=== PATIENT | male | born 1960 | race Caucasian/White ===

== ENCOUNTER 2018-10-13 08:06 | Emergency (ER) | payer OTHER ==
[~2018-10-13] VITALS: Ht 185.4 cm; Wt 90.9 kg
[~2018-10-13 08:06] MED LIST: GLIP5 PO; METF-960 PO
[2018-10-13 08:19] LABS: GLUCOSE,POINT OF CARE 172 MG/DL (70-110)
[2018-10-13] MEDS: PENICILLIN V POTASSIUM 500 MG TABLET PO ONE (09:49)
[2018-10-13] MEDS: KETOROLAC TROMETHAMINE 60 MG/2 ML VIAL IM ONE (09:49)
[2018-10-13 10:20] VITALS: BP 156/91
[2018-10-13 10:39] LABS: GLUCOSE,POINT OF CARE 137 MG/DL (70-110)
== END 2018-10-13 11:00 | disposition home or self-care (01) ==
LOC: EMS 08:06
DX: K08.89 Other specified disorders of teeth and supporting structures (principal); I10 Essential (primary) hypertension; E11.9 Type 2 diabetes mellitus without complications; F17.290 Nicotine dependence, other tobacco product, uncomplicated; Z79.84 Long term (current) use of oral hypoglycemic drugs
CPT/HCPCS: 82962; 96372; 99283; 99406; J1885

== ENCOUNTER 2023-08-24 19:33 | Inpatient (IN) | payer MEDICAID, OTHER ==
[~2023-08-24] VITALS: Ht 177.8 cm; Wt 92.9 kg
[~2023-08-24 19:33] MED LIST changes: -GLIP5 PO; +GLIP5TAB16 PO; +METF-1211 PO; -METF-960 PO
[2023-08-24 22:40] LABS: BASOPHILS % (AUTO) 0.4 % (0.0-2.0); EOSINOPHILS % (AUTO) 0.6 % (1.0-6.0); HEMATOCRIT 39.6 % (41-53); HEMOGLOBIN 12.9 g/dL (13.5-17.5); LYMPHOCYTES # (AUTO) 0.9 K/uL (1.0-4.8); LYMPHOCYTES % (AUTO) 12.7 % (22.0-44.0); MEAN CORPUSCULAR HEMOGLOBIN 32.3 pg (26.0-34.0); MEAN CORPUSCULAR HGB CONC 32.7 G/dL (31.0-37.0); MEAN CORPUSCULAR VOLUME 99 fL (80-100); MONOCYTES # (AUTO) 0.4 K/uL (0.1-1.0); MONOCYTES % (AUTO) 5.6 % (2.0-9.0); NEUTROPHILS # (AUTO) 5.8 K/uL (1.8-7.7); NEUTROPHILS % (AUTO) 80.7 % (40.0-70.0); PLATELET COUNT (AUTO) 175 K/uL (150-450); RED BLOOD CELL COUNT(AUTO) 4.01 MIL/uL (4.50-5.90); RED CELL DISTRIBUTION WIDTH 15.8 % (11.5-14.5); WHITE BLOOD COUNT (AUTO) 7.2 K/uL (4.5-11.0)
[2023-08-24 22:58] LABS: LACTIC ACID 1.4 mmol/L (0.4-2.0)
[2023-08-24 22:59] LABS: TROPONIN I-HIGH SENSITIVITY 571 ng/L (<76)
[2023-08-24 23:01] LABS: ALBUMIN 1.7 g/dL (3.4-5.0); BILIRUBIN,TOTAL 0.4 mg/dL (0.1-1.0); CALCIUM, TOTAL 8.1 mg/dL (8.8-10.5); CREATININE 2.17 mg/dL (0.60-1.30); TOTAL PROTEIN, SERUM 6.5 g/dL (6.4-8.2)
[2023-08-24] MEDS ORDERED: ASPIRIN 325 MG TABLET PO ONE (23:30)
[2023-08-24] MEDS ORDERED: FUROSEMIDE 40 MG/4 ML VIAL IVP ONE (23:30)
[2023-08-25] MEDS ORDERED: ACETAMINOPHEN 325 MG TABLET PO PRN (00:30)
[2023-08-25] MEDS ORDERED: DEXTROSE 50%-WATER 25 GM/50 ML SYRINGE IVP PRN (00:30)
[2023-08-25] MEDS ORDERED: ONDANSETRON HCL 4 MG/2 ML VIAL IVP PRN (00:30)
[2023-08-25] MEDS: INSULIN GLARGINE,HUM.REC.ANLOG 100 UNITS/ML SQ SCH ×2 (00:34→21:33)
[2023-08-25 01:06] LABS: GLUCOMETER DEV NAME(LOC) ERT.5; GLUCOSE,POINT OF CARE 362 MG/DL (70-110)
[2023-08-25 01:16] LABS: COVID AG,FIA SOURCE NASAL SWAB
[2023-08-25 02:08] LABS: SARS-COV2 (COVID) ANTIGEN,FIA Negative (Negative)
[2023-08-25 05:12] LABS: TROPONIN I-HIGH SENSITIVITY 713 ng/L (<76)
[2023-08-25] MEDS: ASPIRIN 81 MG CHEWABLE TABLET PO SCH (08:17)
[2023-08-25] MEDS: FUROSEMIDE 40 MG/4 ML VIAL IVP SCH ×2 (08:17→21:32)
[2023-08-25] MEDS: HEPARIN SODIUM,PORCINE 5,000 UNITS/ML VIAL SQ SCH ×2 (08:17→15:54)
[2023-08-25 08:50] LABS: TROPONIN I-HIGH SENSITIVITY 685 ng/L (<76)
[2023-08-25 11:26] LABS: GLUCOMETER DEV NAME(LOC) ERT.5; GLUCOSE,POINT OF CARE 306 MG/DL (70-110)
[2023-08-25] MEDS: INSULIN LISPRO 100 UNITS/ML SQ PRN ×2 (11:26→21:33)
[2023-08-25 12:00] VITALS: BP 149/90; PULSE 78; RESP 18; TEMP 98
[2023-08-25] MEDS ORDERED: INFLUENZA VIRUS VACCINE QVS 2023-24 (6MO+)/PF 60 MCG/0.5 ML SYRINGE IM. ONE (15:00)
[2023-08-25] MEDS ORDERED: PNEUMOCOCCAL VACCINE POLYVALENT 0.5 ML SYRINGE [PPSV23] IM. ONE (15:00)
[2023-08-25 16:01] VITALS: BP 142/94; PULSE 81; RESP 18; TEMP 98
[2023-08-25] MEDS ORDERED: DIGOXIN 250 MCG/ML 2 ML AMP IVP ONE (17:30)
[2023-08-25] MEDS ORDERED: AMIODARONE HCL 150 MG in DEXTROSE 5%-WATER 97 ML IV ONE (17:45)
[2023-08-25] MEDS ORDERED: HydrOXYzine HCL 50 MG TABLET PO PRN (17:45)
[2023-08-25] MEDS ORDERED: AMIODARONE HCL 360 MG in DEXTROSE 5%-WATER 242.8 ML IV ONE (17:45)
[2023-08-25 19:30] VITALS: BP 121/83; PULSE 103; RESP 18; TEMP 98.4
[2023-08-25 22:16] LABS: GLUCOMETER DEV NAME(LOC) 5N.1C; GLUCOSE,POINT OF CARE 78 MG/DL (70-110)
[2023-08-25] MEDS ORDERED: AMIODARONE HCL 540 MG in DEXTROSE 5%-WATER 239.2 ML IV ONE (23:45)
[2023-08-26 00:18] VITALS: BP 141/82; PULSE 120; RESP 20; TEMP 98.2
[2023-08-26] MEDS: HEPARIN SODIUM,PORCINE 5,000 UNITS/ML VIAL SQ SCH ×4 (00:24→23:45)
[2023-08-26 05:15] VITALS: BP 141/85; PULSE 79; RESP 19; TEMP 98.5
[2023-08-26 06:53] LABS: BASOPHILS % (AUTO) 0.3 % (0.0-2.0); EOSINOPHILS % (AUTO) 0.7 % (1.0-6.0); HEMATOCRIT 41.8 % (41-53); HEMOGLOBIN 13.7 g/dL (13.5-17.5); LYMPHOCYTES # (AUTO) 1.5 K/uL (1.0-4.8); LYMPHOCYTES % (AUTO) 17.6 % (22.0-44.0); MEAN CORPUSCULAR HEMOGLOBIN 32.2 pg (26.0-34.0); MEAN CORPUSCULAR HGB CONC 32.7 G/dL (31.0-37.0); MEAN CORPUSCULAR VOLUME 99 fL (80-100); MONOCYTES # (AUTO) 0.6 K/uL (0.1-1.0); NEUTROPHILS # (AUTO) 6.3 K/uL (1.8-7.7); NEUTROPHILS % (AUTO) 74.4 % (40.0-70.0); PLATELET COUNT (AUTO) 193 K/uL (150-450); RED BLOOD CELL COUNT(AUTO) 4.24 MIL/uL (4.50-5.90); RED CELL DISTRIBUTION WIDTH 15.9 % (11.5-14.5); WHITE BLOOD COUNT (AUTO) 8.4 K/uL (4.5-11.0)
[2023-08-26 07:09] LABS: CALCIUM, TOTAL 8.5 mg/dL (8.8-10.5); CREATININE 2.01 mg/dL (0.60-1.30); POTASSIUM 3.5 mmol/L (3.5-5.1)
[2023-08-26] MEDS: ASPIRIN 81 MG CHEWABLE TABLET PO SCH (08:20)
[2023-08-26] MEDS: FUROSEMIDE 40 MG/4 ML VIAL IVP SCH ×2 (08:20→20:32)
[2023-08-26] MEDS: INSULIN LISPRO 100 UNITS/ML SQ PRN (11:27)
[2023-08-26 11:46] LABS: GLUCOMETER DEV NAME(LOC) 5N.2C; GLUCOSE,POINT OF CARE 163 MG/DL (70-110)
[2023-08-26 19:56] VITALS: BP 126/82; PULSE 76; RESP 19; TEMP 99
[2023-08-26] MEDS: APIXABAN 5 MG TABLET PO SCH (20:32)
[2023-08-26] MEDS: CARVEDILOL 6.25 MG TABLET PO SCH (20:32)
[2023-08-26] MEDS: AMIODARONE HCL 200 MG TABLET PO SCH (20:32)
[2023-08-26 20:36] LABS: GLUCOMETER DEV NAME(LOC) 5N.1C; GLUCOSE,POINT OF CARE 93 MG/DL (70-110)
[2023-08-26 20:36] LABS: GLUCOMETER DEV NAME(LOC) 5N.1C; GLUCOSE,POINT OF CARE 373 MG/DL (70-110)
[2023-08-26 20:36] LABS: GLUCOMETER DEV NAME(LOC) 5N.1C; GLUCOSE,POINT OF CARE 91 MG/DL (70-110)
[2023-08-26] MEDS: INSULIN GLARGINE,HUM.REC.ANLOG 100 UNITS/ML SQ SCH (20:36)
[2023-08-26] MEDS ORDERED: AMIODARONE HCL 750 MG in DEXTROSE 5%-WATER 485 ML IV SCH (21:30)
[2023-08-27 00:11] VITALS: BP 131/71; PULSE 63; RESP 18; TEMP 98.1
[2023-08-27 00:46] LABS: GLUCOMETER DEV NAME(LOC) 5N.1C; GLUCOSE,POINT OF CARE 128 MG/DL (70-110)
[2023-08-27 03:59] VITALS: BP 127/80; PULSE 61; RESP 18; TEMP 98.6
[2023-08-27 08:19] VITALS: BP 124/82; PULSE 63; RESP 17; TEMP 98.3
[2023-08-27] MEDS: ASPIRIN 81 MG CHEWABLE TABLET PO SCH (08:59)
[2023-08-27] MEDS: CARVEDILOL 6.25 MG TABLET PO SCH ×2 (08:59→20:39)
[2023-08-27] MEDS: APIXABAN 5 MG TABLET PO SCH ×2 (08:59→20:39)
[2023-08-27] MEDS: AMIODARONE HCL 200 MG TABLET PO SCH ×2 (08:59→20:40)
[2023-08-27] MEDS: FUROSEMIDE 40 MG/4 ML VIAL IVP SCH ×2 (10:28→20:39)
[2023-08-27 11:31] VITALS: BP 132/59; PULSE 56; RESP 20; TEMP 98
[2023-08-27] MEDS: INSULIN LISPRO 100 UNITS/ML SQ PRN ×3 (12:17→22:42)
[2023-08-27 12:32] LABS: GLUCOMETER DEV NAME(LOC) 5S.2C; GLUCOSE,POINT OF CARE 119 MG/DL (70-110)
[2023-08-27 15:26] VITALS: BP 119/66; PULSE 50; RESP 17; TEMP 97.9
[2023-08-27 18:01] LABS: GLUCOMETER DEV NAME(LOC) 5N.2C; GLUCOSE,POINT OF CARE 326 MG/DL (70-110)
[2023-08-27 19:39] VITALS: BP 123/69; PULSE 52; RESP 18; TEMP 98.6
[2023-08-27] MEDS: ATORVASTATIN CALCIUM 20 MG TABLET PO SCH (20:39)
[2023-08-27] MEDS: INSULIN GLARGINE,HUM.REC.ANLOG 100 UNITS/ML SQ SCH (20:50)
[2023-08-27 21:36] LABS: GLUCOMETER DEV NAME(LOC) 5N.1C; GLUCOSE,POINT OF CARE 201 MG/DL (70-110)
[2023-08-28] VITALS (7 sets, daily range): BP systolic 96–150; BP diastolic 51–90; PULSE 41–54; RESP 16–20; TEMP 97.5–98.6
[2023-08-28 00:06] LABS: GLUCOMETER DEV NAME(LOC) 5N.2C; GLUCOSE,POINT OF CARE 201 MG/DL (70-110)
[2023-08-28 07:16] LABS: GLUCOMETER DEV NAME(LOC) 5N.2C; GLUCOSE,POINT OF CARE 79 MG/DL (70-110)
[2023-08-28] MEDS: ASPIRIN 81 MG CHEWABLE TABLET PO SCH (09:02)
[2023-08-28] MEDS: AMIODARONE HCL 200 MG TABLET PO SCH (09:04)
[2023-08-28] MEDS: FUROSEMIDE 40 MG/4 ML VIAL IVP SCH ×2 (09:04→20:40)
[2023-08-28] MEDS: APIXABAN 5 MG TABLET PO SCH ×2 (09:04→20:40)
[2023-08-28] MEDS: CARVEDILOL 6.25 MG TABLET PO SCH (09:04)
[2023-08-28 09:31] LABS: BASOPHILS % (AUTO) 0.4 % (0.0-2.0); EOSINOPHILS % (AUTO) 0.9 % (1.0-6.0); HEMATOCRIT 40.8 % (41-53); HEMOGLOBIN 13.4 g/dL (13.5-17.5); LYMPHOCYTES # (AUTO) 0.8 K/uL (1.0-4.8); LYMPHOCYTES % (AUTO) 11.7 % (22.0-44.0); MEAN CORPUSCULAR HEMOGLOBIN 32.4 pg (26.0-34.0); MEAN CORPUSCULAR HGB CONC 32.9 G/dL (31.0-37.0); MEAN CORPUSCULAR VOLUME 99 fL (80-100); MONOCYTES # (AUTO) 0.4 K/uL (0.1-1.0); MONOCYTES % (AUTO) 5.2 % (2.0-9.0); NEUTROPHILS # (AUTO) 5.5 K/uL (1.8-7.7); NEUTROPHILS % (AUTO) 81.8 % (40.0-70.0); PLATELET COUNT (AUTO) 167 K/uL (150-450); RED BLOOD CELL COUNT(AUTO) 4.14 MIL/uL (4.50-5.90); RED CELL DISTRIBUTION WIDTH 15.7 % (11.5-14.5); WHITE BLOOD COUNT (AUTO) 6.7 K/uL (4.5-11.0)
[2023-08-28 09:46] LABS: CALCIUM, TOTAL 8.3 mg/dL (8.8-10.5); CREATININE 2.56 mg/dL (0.60-1.30); POTASSIUM 4.6 mmol/L (3.5-5.1)
[2023-08-28 09:55] LABS: ALBUMIN 1.4 g/dL (3.4-5.0); BILIRUBIN,TOTAL 0.4 mg/dL (0.1-1.0); TOTAL PROTEIN, SERUM 6.3 g/dL (6.4-8.2)
[2023-08-28] MEDS ORDERED: DOPamine 400MG/D5W[STANDARD] 250 ML IV PRN (13:30)
[2023-08-28] MEDS: INSULIN LISPRO 100 UNITS/ML SQ PRN (17:48)
[2023-08-28 18:06] LABS: GLUCOSE,POINT OF CARE 277 MG/DL (70-110)
[2023-08-28] MEDS: INSULIN GLARGINE,HUM.REC.ANLOG 100 UNITS/ML SQ SCH (20:40)
[2023-08-28] MEDS: ATORVASTATIN CALCIUM 20 MG TABLET PO SCH (20:40)
[2023-08-28 21:15] LABS: GLUCOSE,POINT OF CARE 183 MG/DL (70-110)
[2023-08-29] VITALS: BP 127/76; PULSE 47; RESP 22; TEMP 98.4
[2023-08-29 04:00] VITALS: BP 140/81; PULSE 52; RESP 2; TEMP 98.3
[2023-08-29 06:01] LABS: BASOPHILS % (AUTO) 0.4 % (0.0-2.0); EOSINOPHILS % (AUTO) 1.9 % (1.0-6.0); HEMATOCRIT 39.9 % (41-53); HEMOGLOBIN 13.3 g/dL (13.5-17.5); LYMPHOCYTES # (AUTO) 1.1 K/uL (1.0-4.8); MEAN CORPUSCULAR HEMOGLOBIN 32.4 pg (26.0-34.0); MEAN CORPUSCULAR HGB CONC 33.3 G/dL (31.0-37.0); MEAN CORPUSCULAR VOLUME 97 fL (80-100); MONOCYTES # (AUTO) 0.5 K/uL (0.1-1.0); MONOCYTES % (AUTO) 7.7 % (2.0-9.0); NEUTROPHILS # (AUTO) 5.3 K/uL (1.8-7.7); PLATELET COUNT (AUTO) 185 K/uL (150-450); RED CELL DISTRIBUTION WIDTH 15.4 % (11.5-14.5); WHITE BLOOD COUNT (AUTO) 7.1 K/uL (4.5-11.0)
[2023-08-29 06:16] LABS: ALBUMIN 1.5 g/dL (3.4-5.0); BILIRUBIN,TOTAL 0.4 mg/dL (0.1-1.0); CALCIUM, TOTAL 8.4 mg/dL (8.8-10.5); CREATININE 2.78 mg/dL (0.60-1.30); POTASSIUM 4.7 mmol/L (3.5-5.1); TOTAL PROTEIN, SERUM 6.5 g/dL (6.4-8.2)
[2023-08-29 08:00] VITALS: BP 146/86; PULSE 61; RESP 20; TEMP 98.7
[2023-08-29] MEDS: APIXABAN 5 MG TABLET PO SCH (08:56)
[2023-08-29] MEDS: ASPIRIN 81 MG CHEWABLE TABLET PO SCH (08:56)
[2023-08-29] MEDS: FUROSEMIDE 40 MG/4 ML VIAL IVP SCH (08:57)
[2023-08-29 11:31] LABS: GLUCOSE,POINT OF CARE 143 MG/DL (70-110)
[2023-08-29 11:46] LABS: GLUCOSE,POINT OF CARE 80 MG/DL (70-110)
[2023-08-29 12:00] VITALS: BP 138/81; PULSE 55; RESP 15; TEMP 97.7
== END 2023-08-29 13:05 | disposition left against medical advice (07) | DRG 194 ==
LOC: EMS 19:34 → 5S 08-25 00:25 → ICU 08-28 13:35
PROVIDERS: ADMIT Internal Medicine; ATTEND Internal Medicine
DX: I13.0 Hypertensive heart and chronic kidney disease with heart failure and stage 1 through stage 4 chronic kidney disease, or unspecified chronic kidney disease (principal); I21.4 Non-ST elevation (NSTEMI) myocardial infarction; E43 Unspecified severe protein-calorie malnutrition; I49.5 Sick sinus syndrome; I48.92 Unspecified atrial flutter; L03.116 Cellulitis of left lower limb; I42.0 Dilated cardiomyopathy; L97.929 Non-pressure chronic ulcer of unspecified part of left lower leg with unspecified severity; I48.0 Paroxysmal atrial fibrillation; N17.9 Acute kidney failure, unspecified; Z20.822 Contact with and (suspected) exposure to COVID-19; E11.22 Type 2 diabetes mellitus with diabetic chronic kidney disease; N18.4 Chronic kidney disease, stage 4 (severe); E11.65 Type 2 diabetes mellitus with hyperglycemia; F17.210 Nicotine dependence, cigarettes, uncomplicated; I50.21 Acute systolic (congestive) heart failure; E11.51 Type 2 diabetes mellitus with diabetic peripheral angiopathy without gangrene; L13.9 Bullous disorder, unspecified; S81.812A Laceration without foreign body, left lower leg, initial encounter; X58.XXXA Exposure to other specified factors, initial encounter; Y93.89 Activity, other specified; Y92.89 Other specified places as the place of occurrence of the external cause; Y99.8 Other external cause status; Z89.422 Acquired absence of other left toe(s); Z91.199 Patient's noncompliance with other medical treatment and regimen due to unspecified reason; Z68.29 Body mass index [BMI] 29.0-29.9, adult
CPT/HCPCS: 71045; 80048; 80053; 80061; 82962; 83036; 83605; 83735; 84484; 85025; 87040; 93005; 93306; 93925; 93970; 97163; 97530; 99285; J0282; J1160; J1265; J1644; J1815; J1940; J7060; 36415-L1; 36415-TC